=== PATIENT | female | born 1950 | race Caucasian/White ===

== ENCOUNTER 2018-09-30 20:53 | Observation (INO) | payer OTHER ==
[2018-09-30] MEDS ORDERED: IPRATROPIUM BROM 0.5MG/2.5ML ONE (22:15)
[2018-09-30] MEDS ORDERED: NA CHLORIDE 0.9% 1,000 ML ONE (22:15)
[2018-09-30] MEDS ORDERED: ALBUTEROL 2.5 MG/3 ML NEB SOL ONE (22:15)
[2018-09-30] MEDS ORDERED: CEFTRIAXONE/SWI 1gm 1 GM/10 ML SYR ONE (22:15)
[2018-09-30 22:57] LABS: Absolute Lymphocytes (CBC) 1.9 K/uL (0.7-4.9); Absolute Neutrophil 12.4 K/uL (1.8-8.0); Basophils % 0.4 % (0-1.3); Eosinophils % 1.1 % (0-4.4); Hematocrit 41.1 % (36.0-45.0); Lymphocytes % 12.2 % (15.3-44.8); MCH 31.7 pg (27.0-35.0); MCV 91.9 fL (80-100); MPV 8.2 fL (7.6-11.3); Monocytes % 6.4 % (3.3-12.3); RBC Red Blood Cell Count 4.47 M/uL (3.86-4.86)
[2018-09-30 23:06] LABS: Protime INR 1.05
[2018-09-30 23:17] LABS: ALT/SGPT 21 U/L (12-78); AST/SGOT 23 U/L (15-37); Albumin 3.8 g/dL (3.4-5.0); Alkaline Phosphatase 59 U/L (45-117); BUN Blood Urea Nitrogen 11 mg/dL (7-18); Bicarbonate 26 mmol/L (21-32); Bilirubin Direct 0.1 mg/dL (0-0.2); Bilirubin Total 0.5 mg/dL (0.2-1.0); Glucose Level 150 mg/dL (74-106); Magnesium 1.9 mg/dL (1.8-2.4); NT PRO-BNP 34 pg/mL (<125); Potassium 3.4 mmol/L (3.5-5.1); Protein, Total 7.4 g/dL (6.4-8.2); Sodium Level 137 mmol/L (136-145); Troponin (Emerg Dept Use Only) < 0.02 ng/mL (0.0-0.045)
[2018-09-30] MEDS ORDERED: FENTANYL CITR 100 MCG/2 ML ONE (23:48)
[2018-09-30 23:58] LABS: Urine Blood NEGATIVE (NEG); Urine Glucose NEGATIVE (NEG); Urine Protein NEGATIVE (NEG); Urine Specific Gravity 1.015 (1.005-1.030)
[2018-10-01 00:24] LABS: Urine Bacteria <20 /HPF (<20); Urine Culture Reflex Order NOT NEEDED; Urine RBC NONE SEEN /HPF (NONE SEEN)
--- NOTE | 2018-10-01 01:46 | EDPHYS ---
Physician Documentation [facility] Name: Idania Bose Age: 68 yrs Sex: Female : 1950 Arrival Date: 09/30/2018 Time: 20:56 Bed 5 Private MD: ED Physician Reginald Redmond HPI: 10/01 02:11 This 68 yrs old Female presents to ER via Ambulatory with complaints of Cough.gs 02:11 The patient or guardian reports cough, that is constant. gs 02:27 Onset: The symptoms/episode began/occurred 5 day(s) ago. Severity of symptoms: At their gs worst the symptoms were moderate, in the emergency department the symptoms are unchanged. Modifying factors: The symptoms are alleviated by nothing, the symptoms are aggravated by nothing. Associated signs and symptoms: Pertinent positives: chest pain, with cough, with breathing, fever. The patient has experienced similar episodes in the past, a few times. The patient has not recently seen a physician. Historical: - Allergies: 09/30 21:20 No Known Allergies; fc - Home Meds: 21:20 None [Active]; fc - PMHx: 21:20 None; fc - PSHx: 21:20 cyst removal from back; fc - Immunization history:: Last tetanus immunization: up to date Flu vaccine is not up to date. - Social history:: Smoking status: Patient/guardian denies using tobacco, Patient/guardian denies using alcohol, street drugs. - Ebola Screening: : Patient negative for fever greater than or equal to 101.5 degrees Fahrenheit, and additional compatible Ebola Virus Disease symptoms Patient denies exposure to infectious person Patient denies travel to an Ebola-affected area in the 21 days before illness onset. ROS: 10/01 02:27 All other systems are negative. gs Exam: 02:27 Head/Face: Normocephalic, atraumatic. Eyes: Pupils equal round and reactive to light, gs extra-ocular motions intact. Lids and lashes normal. Conjunctiva and sclera are non-icteric and not injected. Cornea within normal limits. Periorbital areas with no swelling, redness, or edema. ENT: Nares patent. No nasal discharge, no septal abnormalities noted. Tympanic membranes are normal and external auditory canals are clear. Oropharynx with no redness, swelling, or masses, exudates, or evidence of obstruction, uvula midline. Mucous membranes moist. 02:27 Constitutional: The patient appears alert, awake, uncomfortable. 02:51 Neck: Trachea midline, no thyromegaly or masses palpated, and no cervical gs lymphadenopathy. Supple, full range of motion without nuchal rigidity, or vertebral point tenderness. No Meningismus. Chest/axilla: Normal chest wall appearance and motion. Nontender with no deformity. No lesions are appreciated. 02:51 Abdomen/GI: Soft, non-tender, with normal bowel sounds. No distension or tympany. No guarding or rebound. No evidence of tenderness throughout. Back: No spinal tenderness. No costovertebral tenderness. Full range of motion. Skin: Warm, dry with normal turgor. Normal color with no rashes, no lesions, and no evidence of cellulitis. Neuro: Awake and alert, GCS 15, oriented to person, place, time, and situation. Cranial nerves II-XII grossly intact. Motor strength 5/5 in all extremities. Sensory grossly intact. Cerebellar exam normal. Normal gait. 02:51 Cardiovascular: Rate: tachycardic, Rhythm: regular, Pulses: no pulse deficits are appreciated. 02:51 ECG was reviewed by the Attending Physician. 02:51 Respiratory: mild respiratory distress is noted, Respirations: tachypnea, Breath sounds: rhonchi, that are moderate, are heard diffusely. 02:51 Musculoskeletal/extremity: Circulation is intact in all extremities. Edema, 1+ to the left foot and right foot is noted, the left arm Vital Signs: 12/05 21:00 BP 150 / 76; Pulse 114; Resp 24; Temp 99.5(O); Pulse Ox 92% on R/A; Weight 63.5 kg (R); fc Height 5 ft. 5 in. (165.10 cm) (R); Pain 10/10; 21:23 BP 129 / 67; Pulse 107; Resp 22; Pulse Ox 95% on R/A; ak1 21:49 BP 117 / 78; Pulse 105; Resp 20; Pulse Ox 95% on R/A; ak1 22:47 BP 120 / 67; Pulse 103; Resp 18 S; Temp 99.6(O); Pulse Ox 97% on R/A; bb 23:08 BP 134 / 60; Pulse 100; Resp 20; Pulse Ox 97% on R/A; ak1 23:51 BP 115 / 74; Pulse 99; Resp 16; Pulse Ox 92% on R/A; ak1 23:54 Temp 99.1(O); ak1 10/01 00:24 BP 111 / 69; Pulse 97; Resp 15; Temp 99.1; Pulse Ox 95% on R/A; ak1 01:37 BP 120 / 65; Pulse 97; Resp 17; Temp 99.3; Pulse Ox 99% on R/A; bb 02:21 BP 115 / 65; Pulse 88; Resp 24 S; Pulse Ox 92% on R/A; bb 09/30 21:00 Body Mass Index 23.30 (63.50 kg, 165.10 cm) fc MDM: 09/30 21:43 Patient medically screened. 10/01 02:51 Differential Diagnosis: Bronchitis Influenza Upper Respiratory Infection Pneumonia gs Other pulmonary embolus, chf, mi sepsis. Data reviewed: vital signs, nurses notes. Response to treatment: the patient's symptoms have mildly improved after treatment, and as a result, I will admit patient. 09/30 21:13 Order name: Flu 09/30 21:44 Order name: Influenza Screen (A ; Complete Time: 23:22 EDMS 09/30 21:56 Order name: Basic Metabolic Panel 09/30 21:56 Order name: CBC with Diff 09/30 21:56 Order name: LFT's 09/30 21:56 Order name: Magnesium 09/30 21:56 Order name: NT PRO-BNP 09/30 21:56 Order name: PT-INR 09/30 21:56 Order name: Troponin (emerg Dept Use Only) 09/30 21:56 Order name: Blood Culture* 09/30 21:56 Order name: Lactate 09/30 22:58 Order name: CBC with Automated Diff; Complete Time: 23:22 EDMS 09/30 23:10 Order name: Protime (+INR); Complete Time: 23:22 EDMS 09/30 23:17 Order name: Lactate; Complete Time: 23:22 EDMS 09/30 21:56 Order name: XRAY Chest (1 view) 09/30 21:56 Order name: XRAY Chest Pa And Lat (2 Views) 09/30 23:18 Order name: Basic Metabolic Panel; Complete Time: 23:22 EDMS 09/30 23:18 Order name: Liver (Hepatic) Function; Complete Time: 23:22 EDMS 09/30 23:18 Order name: Troponin (Emerg Dept Use Only); Complete Time: 23:22 EDMS 09/30 23:18 Order name: NT PRO-BNP; Complete Time: 23:22 EDMS 09/30 23:18 Order name: Magnesium; Complete Time: 23:22 EDMS 09/30 23:29 Order name: CT Chest For PE Angio 09/30 23:43 Order name: Urine Culture 09/30 23:43 Order name: Urine Microscopic Only 09/30 23:45 Order name: Urine Dipstick--Ancillary (enter results) ag4 09/30 23:59 Order name: Urine Dipstick-Ancillary; Complete Time: 01:31 EDND 10/01 00:24 Order name: Urine Microscopic Only; Complete Time: 01:31 EDND 09/30 21:56 Order name: EKG; Complete Time: 21:57 09/30 21:56 Order name: Cardiac monitoring; Complete Time: 22:24 09/30 21:56 Order name: EKG - Nurse/Tech; Complete Time: 22:41 09/30 21:56 Order name: IV Saline Lock; Complete Time: 22:24 09/30 21:56 Order name: Labs collected and sent; Complete Time: 22:24 09/30 21:56 Order name: O2 Per Protocol; Complete Time: 22:02 09/30 21:56 Order name: O2 Sat Monitoring; Complete Time: 22:02 EC:51 Rate is 10 beats/min. Rhythm is regular, Normal Sinus Rhythm with Left bundle branch gs block. MT interval is normal. QRS interval is prolonged. QT interval is prolonged. T waves are Flattened. Clinical impression: Abnormal EKG without significant change. Interpreted by me. Administered Medications: 09/30 22:12 Drug: Albuterol 2.5 mg Route: Inhalation; bb 22:13 Drug: NS 0.9% 1000 ml Route: IV; Rate: 1 bolus; Site: right antecubital; bb 23:26 Follow up: IV Status: Completed infusion; IV Intake: 1000ml ak1 22:13 Drug: AtroVENT Aerosol 0.5 mg Route: Inhalation; bb 22:13 Drug: Rocephin - (cefTRIAXone) 1 grams {Note: given as 10 mL push per protocol.} Route: bb IVPB; Infused Over: 30 mins; Site: right antecubital; 10/01 02:41 Follow up: IV Status: Completed infusion ak1 09/30 23:44 Drug: fentaNYL (PF) 50 mcg Route: IVP; Site: right antecubital; bb 10/01 01:39 Follow up: Response: Pain is unchanged, physician notified bb 01:45 Drug: [place] 10 mg-325 mg 1 tabs Route: PO; bb 02:41 Follow up: Response: No adverse reaction ak1 01:46 Drug: LevaQUIN 500 mg Volume: 100 ml; Route: IVPB; Infused Over: 60 mins; Site: right bb antecubital; 02:53 Follow up: IV Status: Completed infusion ak1 03:05 Drug: Zofran 4 mg Route: IVP; Site: right antecubital; ak1 03:06 Follow up: Response: No adverse reaction ak1 Disposition: 10/01/18 01:45 Hospitalization ordered by Danyelle Ramirez for Inpatient Admission. Preliminary diagnosis is Lobar pneumonia, unspecified organism. - Bed requested for Telemetry/MedSurg (Inpatient). - Status is Inpatient Admission. ak1 - Condition is Stable. - Problem is new. - Symptoms have improved. UTI on Admission? No Critical care time excluding procedures: 02:51 Critical care time: Bedside Care: 10 minutes, Consultation: 10 minutes, Family gs Intervention: 10 minutes. Total time: 30 minutes Signatures: Dispatcher [employer] EDND Marzena Jacobs RN RN mw Chretien, Felicia, RN RN fc Ballard, Brenda, RN RN bb Krenek, Amber, RN RN ak1 Reginald Redmond MD MD gs Corrections: (The following items were deleted from the chart) 02:03 01:45 Hospitalization Ordered by Danyelle Ramirez MD for Inpatient Admission. Preliminary emily diagnosis is Lobar pneumonia, unspecified organism. Bed requested for Telemetry/MedSurg (Inpatient). Status is Inpatient Admission. Condition is Stable. Problem is new. Symptoms have improved. UTI on Admission? No. gs 03:06 02:03 10/01/2018 01:45 Hospitalization Ordered by Danyelle Ramirez MD for Inpatient ak1 Admission. Preliminary diagnosis is Lobar pneumonia, unspecified organism. Bed requested for Telemetry/MedSurg (Inpatient). Status is Inpatient Admission. Condition is Stable. Problem is new. Symptoms have improved. UTI on Admission? No. mw
--- NOTE | 2018-10-01 01:46 | ER ---
Nurse's Notes [facility] Name: Idania Bose Age: 68 yrs Sex: Female : 1950 Arrival Date: 09/30/2018 Time: 20:56 Bed 5 Private MD: Diagnosis: Lobar pneumonia, unspecified organism Presentation: 09/30 21:00 Presenting complaint: Patient states: that she is having a cough, congestion and right fc mid back pain that started approx 10 days ago. Thinks she may have bronchitis. Transition of care: patient was not received from another setting of care. Onset of symptoms was September 20, 2018. Risk Assessment: Do you want to hurt yourself or someone else? Patient reports no desire to harm self or others. Initial Sepsis Screen: Does the patient meet any 2 criteria? RR > 20 per min. HR > 90 bpm. Yes Does the patient have a suspected source of infection? Yes: Productive cough/pneumonia If YES to both, name of provider notified: Reginald Redmond MD. Care prior to arrival: Medication(s) given: Motrin, 200 mg, last at 1330. 21:00 Method Of Arrival: Ambulatory fc 21:00 Acuity: NITESH 3 fc Triage Assessment: 21:19 General: Appears in no apparent distress. Behavior is calm, cooperative. ak1 Historical: - Allergies: 21:20 No Known Allergies; fc - Home Meds: 21:20 None [Active]; fc - PMHx: 21:20 None; fc - PSHx: 21:20 cyst removal from back; fc - Immunization history:: Last tetanus immunization: up to date Flu vaccine is not up to date. - Social history:: Smoking status: Patient/guardian denies using tobacco, Patient/guardian denies using alcohol, street drugs. - Ebola Screening: : Patient negative for fever greater than or equal to 101.5 degrees Fahrenheit, and additional compatible Ebola Virus Disease symptoms Patient denies exposure to infectious person Patient denies travel to an Ebola-affected area in the 21 days before illness onset. Screenin:19 Abuse screen: Denies threats or abuse. Nutritional screening: No deficits noted. fc Tuberculosis screening: No symptoms or risk factors identified. Fall Risk None identified. Assessment: 21:23 General: Appears in no apparent distress. Behavior is calm, cooperative. Pain: ak1 Complains of pain in back and chest. Neuro: No deficits noted. Cardiovascular: No deficits noted. Respiratory: Airway is patent Breath sounds with crackles in left posterior lower lobe and right posterior lower lobe Onset: The symptoms/episode began/occurred 10 days CONSTRUCTION REPRESENTATIVE. pt taking OTC Mucinex and Ibuprofen , the patient has mild shortness of breath. GI: No signs and/or symptoms were reported involving the gastrointestinal system. : No signs and/or symptoms were reported regarding the genitourinary system. EENT: No signs and/or symptoms were reported regarding the EENT system. Derm: No signs and/or symptoms reported regarding the dermatologic system. Musculoskeletal: No signs and/or symptoms reported regarding the musculoskeletal system. 22:40 Reassessment: lab at bedside for re-collect. ak1 23:51 Reassessment: Patient appears in no apparent distress at this time. No changes from ak1 previously documented assessment. Patient and/or family updated on plan of care and expected duration. Pain level reassessed. Patient is alert, oriented x 3, equal unlabored respirations, skin warm/dry/pink. pt ambulated to restroom with steady gait. . 10/01 01:38 Reassessment: Patient and/or family updated on plan of care and expected duration. Pain bb level reassessed. pt is A\T\O x 4, resp unlabored, appears uncomfortable states the pain medication worked earlier but not as much now. Dr Redmond notified awaiting new orders. 02:21 Reassessment: pt resting quietly states pain medication helped a little, IV site bb intact, patent with fluids infusing awaiting room assignment. Vital Signs: 09/30 21:00 BP 150 / 76; Pulse 114; Resp 24; Temp 99.5(O); Pulse Ox 92% on R/A; Weight 63.5 kg (R); fc Height 5 ft. 5 in. (165.10 cm) (R); Pain 10/10; 21:23 BP 129 / 67; Pulse 107; Resp 22; Pulse Ox 95% on R/A; ak1 21:49 BP 117 / 78; Pulse 105; Resp 20; Pulse Ox 95% on R/A; ak1 22:47 BP 120 / 67; Pulse 103; Resp 18 S; Temp 99.6(O); Pulse Ox 97% on R/A; bb 23:08 BP 134 / 60; Pulse 100; Resp 20; Pulse Ox 97% on R/A; ak1 23:51 BP 115 / 74; Pulse 99; Resp 16; Pulse Ox 92% on R/A; ak1 23:54 Temp 99.1(O); ak1 10/01 00:24 BP 111 / 69; Pulse 97; Resp 15; Temp 99.1; Pulse Ox 95% on R/A; ak1 01:37 BP 120 / 65; Pulse 97; Resp 17; Temp 99.3; Pulse Ox 99% on R/A; bb 02:21 BP 115 / 65; Pulse 88; Resp 24 S; Pulse Ox 92% on R/A; bb 09/30 21:00 Body Mass Index 23.30 (63.50 kg, 165.10 cm) fc ED Course: 09/30 20:56 Patient arrived in ED. al2 21:00 Arm band placed on Patient placed in an exam room, on a stretcher. fc 21:10 Patient has correct armband on for positive identification. Placed in gown. Bed in low fc position. Call light in reach. 21:18 Triage completed. fc 21:19 Padmini Carlin, RN is Primary Nurse. ak1 21:23 Pulse ox on. NIBP on. ak1 21:30 Reginald Redmond MD is Attending Physician. gs 22:15 Initial Neb Treatment Given as ordered Patient was instructed and evaluated on ak1 procedure. Inserted saline lock: 20 gauge in right antecubital area, using aseptic technique. Blood collected. 22:15 Initial lab(s) drawn, by wi, sent to lab. First set of blood cultures drawn by wi, ak1 Second set of blood cultures drawn Flu and/or RSV swab sent to lab. 22:23 Blood Culture* Sent. ak1 22:23 Basic Metabolic Panel Sent. ak1 22:23 CBC with Diff Sent. ak1 22:23 LFT's Sent. ak1 22:23 Magnesium Sent. ak1 22:23 NT PRO-BNP Sent. ak1 22:23 PT-INR Sent. ak1 22:24 Troponin (emerg Dept Use Only) Sent. ak1 10/01 00:44 CT completed. Patient tolerated procedure well. Patient moved to CT via stretcher. Patient moved back from [place]. 01:43 Danyelle Ramirez MD is Hospitalizing Provider. gs 02:22 Patient admitted, IV remains in place. bb 02:23 No provider procedures requiring assistance completed. bb Administered Medications: 09/30 22:12 Drug: Albuterol 2.5 mg Route: Inhalation; bb 22:13 Drug: NS 0.9% 1000 ml Route: IV; Rate: 1 bolus; Site: right antecubital; bb 23:26 Follow up: IV Status: Completed infusion; IV Intake: 1000ml ak1 22:13 Drug: AtroVENT Aerosol 0.5 mg Route: Inhalation; bb 22:13 Drug: Rocephin - (cefTRIAXone) 1 grams {Note: given as 10 mL push per protocol.} Route: bb IVPB; Infused Over: 30 mins; Site: right antecubital; 10/01 02:41 Follow up: IV Status: Completed infusion ak1 09/30 23:44 Drug: fentaNYL (PF) 50 mcg Route: IVP; Site: right antecubital; bb 10/01 01:39 Follow up: Response: Pain is unchanged, physician notified bb 01:45 Drug: [place] 10 mg-325 mg 1 tabs Route: PO; bb 02:41 Follow up: Response: No adverse reaction ak1 01:46 Drug: LevaQUIN 500 mg Volume: 100 ml; Route: IVPB; Infused Over: 60 mins; Site: right bb antecubital; 02:53 Follow up: IV Status: Completed infusion ak1 03:05 Drug: Zofran 4 mg Route: IVP; Site: right antecubital; ak1 03:06 Follow up: Response: No adverse reaction ak1 Intake: 09/30 23:26 IV: 1000ml; Total: 1000ml. ak1 Outcome: 10/01 01:45 Decision to Hospitalize by Provider. gs 02:22 Admitted to Tele bb 02:22 Instructed on the need for admit. 02:38 Admitted to Tele accompanied by tech, via wheelchair, room 222, with chart, Report ak1 called to Maryann 02:38 Condition: stable 03:06 Patient left the ED. ak1 Signatures: Evangelista Hutchinson Felicia, RN RN fc Ballard, Brenda, RN RN bb Padmini Carlin RN RN ak1 Redmond, Reginald, MD MD gs Love, Jessica al2
[2018-10-01] MEDS ORDERED: HYDROCODONE/APAP 10/325 TAB ONE (01:52)
[2018-10-01] MEDS ORDERED: Levofloxacin500mg IV 500 MG/100 ML BAG IV ONE (01:56)
[2018-10-01] MEDS ORDERED: ACETAMINOPHEN 500 MG TAB PO PRN (02:23)
[2018-10-01] MEDS ORDERED: ONDANSETRON 4 MG/2 ML VIAL IV PRN (02:23)
[2018-10-01] MEDS ORDERED: Levofloxacin500mg IV 500 MG/100 ML BAG IV SCH ×2 (03:00→21:00)
[2018-10-01] MEDS ORDERED: ONDANSETRON 4 MG/2 ML VIAL ONE (03:12)
[2018-10-01] MEDS: NA CHLORIDE 0.9% 1,000 ML IV SCH ×2 (03:49→16:31)
[2018-10-01] MEDS ORDERED: INFLUENZA VACCINE (for 3y+) 0.5 ML DOSE IMVAC ONE (06:00)
--- NOTE | 2018-10-01 06:28 | RAD REPORT ---
EXAM DESCRIPTION: CT - Chest For Pe Angio - 10/01/2018 3:49 am CLINICAL HISTORY: Cough and congestion, right-sided chest and back pain A preliminary report was provided at the time of the study and reviewed prior to final report. COMPARISON: None. TECHNIQUE: Dynamically enhanced 3 mm thick images of the chest were obtained during administration o f approximately 150mL Isovue 370 IV contrast. Coronal and oblique MIP reconstruction images were gene rated and reviewed. Exam utilizes a protocol to evaluate the pulmonary arterial tree. All CT scans are performed using dose optimization technique as appropriate and may include automated exposure control or mA/KV adjustment according to patient size. FINDINGS: No pulmonary emboli are identified. The aorta as imaged shows no acute or suspicious finding. No pericardial thickening or effusion. No large mass or consolidations seen. Patient has some minimal consolidation in the left lung base. T here is bronchial wall thickening seen in each lower lobe and at least 1 segmental bronchus in the le ft lower lobe is occluded by mucous or inflammatory debris. No pleural effusion or pleural thickening . Multiple small hilar lymph nodes are present likely reactive. No suspicious lymphadenopathy. No chest wall masses or abnormal axillary lymphadenopathy. IMPRESSION: No pulmonary emboli identified. Bronchial wall thickening in each lower lobe with patchy airspace disease and bronchial occlusion in the left lower lobe. This is most likely early pneumonia change. Small hilar reactive lymph nodes.
[2018-10-01 06:30] LABS: Phosphorus 3.4 mg/dL (2.5-4.9)
--- NOTE | 2018-10-01 06:31 | RAD REPORT ---
EXAM DESCRIPTION: RAD - Chest Pa And Lat (2 Views) - 09/30/2018 10:31 pm CLINICAL HISTORY: Cough and congestion, right-sided back pain COMPARISON: None. TECHNIQUE: PA and lateral views of the chest were obtained. FINDINGS: The lungs are normal volume. No focal mass or consolidation. Interstitial markings are pro minent in each lung base. Baseline for the patient is unknown. Trachea is midline. Heart size is nor mal and central vasculature is within normal limits. No pleural effusion or pneumothorax seen. No a cute bony finding noted. No aortic abnormality. IMPRESSION: Baseline examination showing prominent bilateral lung base interstitial markings. In the acute clinical setting as a baseline study, bilateral interstitial infiltrate or edema suspect ed.
[2018-10-01] MEDS: IPRATROPIUM BROM 0.5MG/2.5ML NEB SCH ×3 (08:27→19:36)
[2018-10-01] MEDS: ALBUTEROL 2.5 MG/3 ML NEB SOL NEB SCH ×3 (08:27→19:36)
[2018-10-01] MEDS: ENOXAPARIN 40 MG/0.4 ML SQ SCH (08:33)
--- NOTE | 2018-10-01 11:29 | EKG ---
Test Date: 2018-09-30 Test Time: 22:36:22 Nuclear Fuel Processing Technician: MCKAY MEASUREMENT RESULTS: Intervals: Rate: 101 RI: 158 QRSD: 132 QT: 402 QTc: 521 [place]: P: 64 RI: 158 QRS: -1 T: 101 INTERPRETIVE STATEMENTS: Sinus tachycardia Left bundle branch block Abnormal ECG No previous ECG available for comparison Electronically Signed On 10-01-18 11:27:45 SHEET ROCK APPLIER by Usman Arias
[2018-10-01 11:30] LABS: Urine Appearance CLEAR; Urine Bilirubin NEGATIVE (NEG); Urine Blood NEGATIVE (NEG); Urine Color YELLOW; Urine Glucose NEGATIVE (NEG); Urine Protein NEGATIVE (NEG); Urine Urobilinogen 0.2 mg/dL (0.2-1.0); Urine pH 6.5 (5.0-7.0)
[2018-10-01 11:31] LABS: Urine Microscopic Reflex ORDER UMIC
[2018-10-01 11:35] LABS: Urine Bacteria <20 /HPF (<20); Urine Culture Reflex Order REFLEXED; Urine RBC <5 /HPF (NONE SEEN)
--- NOTE | 2018-10-01 16:33 | P.HP ---
Certification for Inpatient Patient admitted to: Inpatient With expected LOS: >2 Midnights Patient will require the following post-hospital care: None Practitioner: I am a practitioner with admitting privileges, knowledge of patient current condition, hospital course, and medical plan of care. Services: Services provided to patient in accordance with Admission requirements found in Title 42 Section 412.3 of the Code of Federal Regulations Patient History Date of Service: 09/30/18 Reason for admission: Pneumonia History of Present Illness: Patient is a 68-year-old female who came into the hospital with cough and shortness of breath. Patient was hypoxic and was admitted to the hospital after her workup in the emergency room revealed she had a pneumonic process. Patient also had a leukocytosis. She has not been feeling well for many days now and over the last week her symptoms had got worse. She was admitted to the hospital for further evaluation. Allergies No Known Allergies Allergy (Verified 10/01/18 03:44) Home Medications: NK [No Home Meds] 10/01/18 - Past Medical/Surgical History Has patient received pneumonia vaccine in the past: No Diabetic: No Past Medical History: Patient denies medical history Past Surgical History: Patient denies surgical history - Family History Father Medical History: Diabetes, Stroke Mother Medical History: Hypertension, Other (see notes) Notes: Migraines - Social History Smoking Status: Never smoker Alcohol use: Yes CD- Drugs: Yes Caffeine use: Yes Place of Residence: Home Review of Systems 10-point ROS is otherwise unremarkable Physical Examination - Vital Signs Temperature: 98.3 F Blood Pressure: 118/60 Pulse: 78 Respirations: 18 Pulse Ox (%): 96 - Physical Exam General: Alert, In no apparent distress, Oriented x3 HEENT: Atraumatic, PERRLA, Mucous membr. moist/pink, EOMI, Sclerae nonicteric Neck: Supple, 2+ carotid pulse no bruit, No LAD, Without JVD or thyroid abnormality Respiratory: Clear to auscultation bilaterally, Normal air movement Cardiovascular: Regular rate/rhythm, Normal S1 S2, No murmurs Gastrointestinal: Normal bowel sounds, Soft and benign, Non-distended, No tenderness Musculoskeletal: No clubbing, No swelling, No tenderness Integumentary: No rashes Neurological: Normal gait, Normal speech, Normal strength at 5/5 x4 extr, Normal tone, Sensation intact, Cranial nerves 3-12 intact, Normal affect Lymphatics: No axilla or inguinal lymphadenopathy - Studies Laboratory Data (last 24 hrs) 09/30/18 22:44: PT 12.4, INR 1.05 09/30/18 22:44: WBC 15.5 H, Hgb 14.2, Hct 41.1, Plt Count 299 09/30/18 22:44: Sodium 137, Potassium 3.4 L, BUN 11, Creatinine 0.90, Glucose 150 H, Magnesium 1.9, Total Bilirubin 0.5, AST 23, ALT 21, Alkaline Phosphatase 59 Microbiology Data (last 24 hrs): 09/30/18 22:15 Blood - Blood Anaerobic Blood Culture - Final 09/30/18 21:13 Nasopharnyx Influenza Type A Antigen Screen - Final 09/30/18 21:13 Nasopharnyx Influenza Type B Antigen Screen - Final Assessment & Plan - Problems (Diagnosis) (1) Pneumonia Current Visit: Yes Status: Acute (2) Leukocytosis Current Visit: Yes Status: Acute - Plan Plan: 1. Continue with IV antibiotics 2. Sputum and blood culture; procalcitonin level 3. Repeat chest x-ray in AM 4. Continue with nebs as needed 5. O2 per protocol 6. Continue with gentle hydration 7. Repeat labs including CBC and renal function in a.m. 8. GI and DVT prophylaxis Discharge Plan: Home Plan to discharge in: Greater than 2 days - Advance Directives Does patient have a Living Will: No Does patient have a Durable POA for Healthcare: No - Code Status/Comfort Care Code Status Assessed: Yes Code Status: Full Code Critical Care: No Time Spent Managing PTS Care (In Minutes): 50
--- NOTE | 2018-10-01 18:46 | P.PN ---
Subjective Date of Service: 10/01/18 Chief Complaint: Pneumonia Subjective: Tolerating diet, Ambulating, Improving, Working w/ PT, Doing well Review of Systems 10-point ROS is otherwise unremarkable Physical Examination - Vital Signs Temperature: 98.3 F Blood Pressure: 118/60 Pulse: 78 Respirations: 18 Pulse Ox (%): 96 - Physical Exam General: Alert, In no apparent distress HEENT: Atraumatic, PERRLA, EOMI Neck: Supple, JVD not distended Respiratory: Clear to auscultation bilaterally, Normal air movement Cardiovascular: Regular rate/rhythm, Normal S1 S2 Gastrointestinal: Normal bowel sounds, No tenderness Musculoskeletal: No tenderness Integumentary: No rashes Neurological: Normal speech, Normal tone, Normal affect Lymphatics: No axilla or inguinal lymphadenopathy - Studies Laboratory Data (last 24 hrs) 09/30/18 22:44: PT 12.4, INR 1.05 09/30/18 22:44: WBC 15.5 H, Hgb 14.2, Hct 41.1, Plt Count 299 09/30/18 22:44: Sodium 137, Potassium 3.4 L, BUN 11, Creatinine 0.90, Glucose 150 H, Magnesium 1.9, Total Bilirubin 0.5, AST 23, ALT 21, Alkaline Phosphatase 59 Microbiology Data (last 24 hrs): 09/30/18 22:15 Blood - Blood Anaerobic Blood Culture - Final 09/30/18 21:13 Nasopharnyx Influenza Type A Antigen Screen - Final 09/30/18 21:13 Nasopharnyx Influenza Type B Antigen Screen - Final Medications List Reviewed: Yes Assessment And Plan - Current Problems (Diagnosis) (1) Pneumonia Current Visit: Yes Status: Acute Plan: Lobar PNA noted on Cxray -IV levaquin for now -Sputum Culture pending. -Improving today -Anticipate DC in 24 to 48hrs Qualifiers: Pneumonia type: due to unspecified organism Laterality: unspecified laterality Lung location: unspecified part of lung Qualified Code(s): J18.9 - Pneumonia, unspecified organism Discharge Plan: Home Plan to discharge in: 48 Hours - Code Status/Comfort Care Code Status Assessed: Yes Critical Care: No
[2018-10-02] MEDS: ALBUTEROL 2.5 MG/3 ML NEB SOL NEB SCH ×3 (01:29→14:00)
[2018-10-02] MEDS: IPRATROPIUM BROM 0.5MG/2.5ML NEB SCH ×3 (01:29→14:00)
[2018-10-02] MEDS: NA CHLORIDE 0.9% 1,000 ML IV SCH (06:08)
[2018-10-02] MEDS: ENOXAPARIN 40 MG/0.4 ML SQ SCH (09:10)
--- NOTE | 2018-10-02 15:40 | P.SSS ---
Patient History Date of Service: 10/02/18 Reason for admission: Pneumonia History of Present Illness: Patient is a 68-year-old female who came into the hospital with cough and shortness of breath. Patient was hypoxic and was admitted to the hospital after her workup in the emergency room revealed she had a pneumonic process. Patient also had a leukocytosis. She has not been feeling well for many days now and over the last week her symptoms had got worse. She was admitted to the hospital for further evaluation. Allergies No Known Allergies Allergy (Verified 10/01/18 03:44) Home Medications: Levofloxacin [Levaquin] 500 mg PO DAILY #14 tablet 10/02/18 - Past Medical/Surgical History Has patient received pneumonia vaccine in the past: No Diabetic: No - Family History Father -: Diabetes, Stroke Mother -: Hypertension, Other (see notes) Notes: Migraines - Social History Smoking Status: Never smoker Alcohol use: Yes CD- Drugs: Yes Caffeine use: Yes Place of Residence: Home Review of Systems 10-point ROS is otherwise unremarkable Physical Examination - Vital Signs Temperature: 98.1 F Blood Pressure: 139/76 Pulse: 80 Respirations: 18 Pulse Ox (%): 97 - Physical Exam General: Alert, In no apparent distress HEENT: Atraumatic, PERRLA, Mucous membr. moist/pink, EOMI, Sclerae nonicteric Neck: Supple, 2+ carotid pulse no bruit, No LAD, Without JVD or thyroid abnormality Respiratory: Clear to auscultation bilaterally, Normal air movement Cardiovascular: Regular rate/rhythm, Normal S1 S2 Gastrointestinal: Normal bowel sounds, No tenderness Musculoskeletal: No tenderness Integumentary: No rashes Neurological: Normal gait, Normal speech, Normal strength at 5/5 x4 extr, Normal tone, Normal affect Lymphatics: No axilla or inguinal lymphadenopathy - Studies Microbiology Data (last 24 hrs): 09/30/18 22:15 Blood - Blood Anaerobic Blood Culture - Final - Diagnosis (Problem(s)) (1) Pneumonia Onset Date: 10/02/18 Status: Acute Qualifiers: Pneumonia type: due to unspecified organism Laterality: unspecified laterality Lung location: unspecified part of lung Qualified Code(s): J18.9 - Pneumonia, unspecified organism Treatment Summary: Overall during the hospital stay patient remained stable Patient was initially admitted to the hospital for shortness of breath was found to have lobar pneumonia on the chest x-ray. Patient was started on IV Levaquin here in the hospital. Patient had marked improvement in her symptoms. Despite patient's prepare B-negative patient's x-ray and physical exam was consistent with bacterial pneumonia. Patient was then discharged home once she was able to ambulate tolerating diet not requiring any further O2. Patient was added extensively on the need to complete antibiotics. Patient demonstrated understanding condition. Patient thus was discharged home under stable condition - Disposition Disposition: ROUTINE DISCHARGE Condition: GOOD Patient Discharge Instructions: Please f.u with PCP and Dr Mensah in 1 to 2 week post discharge. New medication. Levaquin 500mg daily for 14 days Diet: Regular Activity: Ad clovis
== END 2018-10-02 15:19 | disposition home or self-care (01) ==
LOC: ER 20:53 → INTOOBSV 10-01 01:45 → ERHOLD 10-01 01:45 → 2ND 10-01 02:46
PROVIDERS: ADMIT Hospitalist; ATTEND Hospitalist
DX: J18.9 Pneumonia, unspecified organism (principal); R09.02 Hypoxemia; Z23 Encounter for immunization
CPT/HCPCS: 36415 ×2; 71046; 71275; 80048 ×2; 80061; 80076; 83605; 83735; 83880; 84100; 84145; 84484; 85025; 85610; 87040 ×2; 87070; 87086; 87088; 87205; 87804 ×2; 93005; 94640; 94760; 96365; 96366; 96368; 96375; 99285; G0008; G0378 ×2; J0696; J1650 ×2; J2405; J3010; J7030 ×4; Q2035; Q9967; 81003; 81015